=== PATIENT | female | born 1980 | race Caucasian/White ===

== ENCOUNTER 2017-05-24 16:20 | Emergency (ER) | payer OTHER, BC ==
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
[2017-05-24] MEDS ORDERED: ORPHENADRINE CITRATE 30 MG/ML VIAL IM ONE (17:17)
[2017-05-24 17:18] VITALS: BP 140/87
[2017-05-24] MEDS ORDERED: ORPHENADRINE CITRATE 30 MG/ML VIAL ONE (17:20)
== END 2017-05-24 17:37 | disposition home or self-care (01) ==
LOC: ER 16:20
DX: S16.1XXA Strain of muscle, fascia and tendon at neck level, initial encounter (principal); S13.4XXA Sprain of ligaments of cervical spine, initial encounter; V43.52XA Car driver injured in collision with other type car in traffic accident, initial encounter; Y92.414 Local residential or business street as the place of occurrence of the external cause

== ENCOUNTER 2018-08-13 11:15 | Observation (INO) ==
[2018-08-13] MEDS ORDERED: BUPIVACAINE HCL/EPINEPHRINE 50 ML VIAL IJ PRN (18:00)
[2018-08-13] MEDS ORDERED: CEFOXITIN SODIUM 2 GM in DEXTROSE 5 % IN WATER 100 ML IV PRN ×2 (18:00)
[2018-08-13] MEDS: RINGER'S SOLUTION,LACTATED 1,000 ML IV PRN ×2 (18:33→20:55)
--- NOTE | 2018-08-13 19:26 | ANES ---
Anesthesia Pre Procedure Eval Vitals/Labs: Last Vital Signs Temp 37.7 C 08/13/18 17:55 Pulse 84 08/13/18 17:55 Resp 16 08/13/18 17:55 BP 134/94 H 08/13/18 17:55 Pulse Ox 100 08/13/18 17:55 HOME MEDICATIONS alprazolam 0.5 mg tablet 0.5 mg PO BID-TID PRN #30 tab 05/06/18 [Last Taken Unknown] Allergies/Adverse Reactions: Allergies Allergy/AdvReac Type Severity Reaction Status Date / Time acetaminophen Allergy Intermediate Hives Verified 08/13/18 18:03 - Planned Procedure Planned Procedure: ACUTE APPENDICITIS Medication List Reviewed:: Yes Allergies Verified: Yes Medical History (Updated 02/13/18 @ 15:10 by Brittney Varela CMA) Anxiety Onset Date: ~06/16/12 Back pain Onset Date: ~10/20/12 GERD (gastroesophageal reflux disease) Onset Date: Unknown H/O wisdom tooth extraction Onset Date: Unknown Metatarsal fracture Onset Date: ~10/17/14 Surgical History (Updated 02/13/18 @ 15:10 by Brittney Varela CMA) H/O section Onset Date: ~06/25/10 Dr. Yap Hx laparoscopic cholecystectomy Onset Date: ~07/29/14 Dr. Santiago Family History (Last Reviewed 08/13/18 @ 19:23 by Kyler Ying CRNA) Mother Depression Cancer Father unknown Cancer Grandfather Cancer Grandmother Cancer - Family Anesthesia History Family History:: no untoward family reactions to anesthesia, no familial bleeding tendencies, no family history of clotting disorders, no family history of premature - Airway/Neck/Teeth Within Normal Limits:: Yes Teeth Condition: intact Neck Exam: full range of motion Mallampatti Score: 2 Thyromental (T-M) distance: > 6 cm Mandibulo Hyoid distance: > 3 cm - Respiratory Respiratory History: asthma - as child Respiratory Physical: lungs clear Smoking Status: Never smoker Sleep Apnea currently treated: No Sleep Apnea by current assessment: No - Cardiovascular Tolerate Activity: Good Heart Sounds: S1 & S2, Regular - Anesthesia Assessment and Plan ASA Class: PS, II, E Anesthesia Type Plan: General ET Planned difficult intubation/equipment available: No
[2018-08-13] MEDS ORDERED: RINGER'S SOLUTION,LACTATED 1,000 ML IV PRN (21:24)
[2018-08-13] MEDS ORDERED: ALPRAZolam 0.5 MG TABLET PO PRN (21:28)
--- NOTE | 2018-08-13 21:29 | ANES ---
Post Anesthesia Discharge - Transfer of Care Transfer of Care handoff given to nurse: Yes - Discharge from PACU Discharge from PACU when meets criteria: Yes - Comfortable in PACU.
--- NOTE | 2018-08-13 21:48 | ANES ---
Post Anesthesia Assessment - Vital Signs Vitals: Last Vital Signs Temp 36.9 C 08/13/18 21:40 Pulse 83 08/13/18 21:40 Resp 16 08/13/18 21:40 BP 134/79 08/13/18 21:40 Pulse Ox 94 08/13/18 21:40 Airway Patency: Normal - Mental Status Level Of Consciousness: Awake, Alert, Appropriate - Pain Level Pain Score: 2 - N/V Assessment Nausea/Vomiting Presence: None Dehydration:: No
[2018-08-13] MEDS ORDERED: ONDANSETRON HCL/PF 2 MG/ML VIAL IV PRN (23:17)
[2018-08-13] MEDS: oxyCODONE HCL/ACETAMINOPHEN 1 TAB TABLET PO PRN (23:50)
[2018-08-14] MEDS: CEFOXITIN SODIUM 1 GM in DEXTROSE 5 % IN WATER 100 ML IV SCH ×4 (02:51→08:41)
--- NOTE | 2018-08-14 07:51 | OR ---
Operative Report - Dictated Report Narrative: Date of operation 08/13/2018 Preoperative diagnosis: Acute appendicitis Postoperative diagnosis: Acute appendicitis with localized peritonitis (pathology pending) Operation: Laparoscopic appendectomy Surgeon: SOWMYA Beth MD Anesthesia: Gen. den Ying CRNA Indications for procedure: The patient is a 37-year-old female who presented to Dr. Prince's office with a 1 day history of lower abdominal pain. CT scan showed evidence of acute appendicitis. Findings: Acute appendicitis with localized peritonitis Narrative of procedure: The patient was identified preoperatively, and prior to the administration of anesthetic a multidisciplinary timeout was observed. The patient was placed supine, SCDs were applied, and[]. [] was administered. The patient's abdomen was prepped with Betadine solution, and a generous operating field outlined with 4 sterile towels. The remainder the patient was covered with a sterile disposable drape. A transverse infraumbilical skin incision was made, and dissection was carried along the umbilical stalk until the fascia of the linea alba was encountered. This was incised. The peritoneum was elevated and incised to allow entry into the abdomen under direct vision. A Hussan cannula was placed and the abdomen insufflated with CO2. The laparoscopic camera was introduced and the abdomen briefly explored. Those portions of the liver, stomach, small and large intestine visualized appeared normal. The appendix was not immediately visible. Photographs were obtained. Next under direct vision, 2 additional working ports were inserted through separate skin incisions, one in the suprapubic area one in the left lower quadrant. The apex of the cecum was retracted cephalad and an acutely inflamed appendix was visualized. This was adherent to the peritoneum along the lateral abdominal wall. The peritoneal attachments were gradually lysed under direct vision until the appendix and mesoappendix could be elevated. A window was created adjacent to the appendiceal base which was then transected with a laparoscopic ADRYAN stapling device. The stump of the appendix was seen to be hemostatic and gas and liquid tight. The mesoappendix was divided with an application of a ADRYAN laparoscopic stapling device. It was seen to be hemostatic. The appendix was placed in an Endobag and parked in the right lower quadrant. The right lower quadrant was suctioned clean and hemostasis was again assured. The small working ports were then withdrawn under direct vision to ensure entry site hemostasis. The appendix was removed in conjunction with the Hussan cannula. The pneumoperitoneum was allowed to escape, and after receiving a correct sponge needle and instrument count attention was turned to closing the abdomen. The fascia and peritoneum at the umbilicus were approximated with interrupted sutures of #1 Vicryl. Subcutaneous space at the umbilicus was obliterated with a single suture of 3-0 chromic. Skin incisions were approximated with interrupted vertical mattress sutures of 4-0 nylon. The operative sites were washed and dried. Dressings of Bactroban ointment and large Band-Aids were applied to the small port sites. The umbilical incision was dressed with Bactroban ointment, 2 x 2, large Band-Aid, and Medipore tape. The operative procedure was terminated at this point. There was no measurable blood loss. 0.5% Marcaine with epinephrine was used for local anesthetic infiltration area the appendix was submitted to pathology. The patient tolerated the anesthetic and procedure well without complication and was transferred to the recovery room awake, extubated, and in stable condition. Reviewed and electronically signed
[2018-08-14] MEDS: oxyCODONE HCL/ACETAMINOPHEN 1 TAB TABLET PO PRN (08:14)
--- NOTE | 2018-08-14 11:31 | DS ---
(1) Acute appendicitis Problem: Acute Qualifiers: Acute appendicitis type: with localized peritonitis Description of Stay: Had uneventful laparoscopic appendectomy for acute appendicitis with localized peritonitis. Chlorhexidine wipes, SCD's, IV pre and post op Mefoxin. Isolation for ESBL (UTI last spring). VS remained normal. Presenting pain resolved. Incisional discomfort controlled with Percocet. Walked, tolerated general diet, dressings dry. Home, instructions and work slip given, Rx Percocet 5/325mg #30, RTC 1 week, #'s to call for questions or concerns. Procedures Performed: see notes below - laparoscopic appendectomy Results and Findings: Lab Pending Results 08/13/18 21:30: Pathology Specimen Spec to path Discharge Location: Home Disposition: Home self-care Condition: Good Discharge Activity: Activity as tolerated, No Lifting Discharge Diet: General/regular food Referrals: Maricruz Prince MD [Primary Care Provider] - Problem Oriented Discharge Instructions to Patient/Family: Laparoscopic Appendectomy, Adult, Care After, [id number] Additional Patient Instructions (free text): Do not return to work until seen again by Dr. Beth. May walk, climb stairs, ride in car, shower starting on Friday. May change dressing on Friday. No not lift over 10 lbs. Usual diet. Follow up appointment with Dr. Prince on 08/21/18 at 10:15am. Follow up appointment with Dr. Beth on 08/20/18 at 2:45pm. Prescriptions (Any new or edited meds): oxyCODONE HCL/ACETAMINOPHEN [Percocet 5 MG/325 MG] 1 tab PO Q4H PRN #30 tab PRN Reason: Moderate Pain (Pain Scale 4-6) Complete Home Medications List: Complete Home Medication List: alprazolam 0.5 mg tablet 0.5 mg PO BID-TID PRN #30 tab 05/06/18 oxyCODONE HCL/ACETAMINOPHEN [Percocet 5 MG/325 MG] 1 tab PO Q4H PRN #30 tab 08/14/18
[2018-08-14 11:47] VITALS: BP 132/62
== END 2018-08-14 12:15 | disposition home or self-care (01) ==
LOC: MS 11:15 → RAD 11:15
PROVIDERS: ADMIT Surgery; ATTEND Surgery
DX: K35.33 Acute appendicitis with perforation, localized peritonitis, and gangrene, with abscess
CPT/HCPCS: 74019; 74020; 74177; 88304; G0378; J2405; Q9963; Q9967